=== PATIENT | female | born 1995 | race African-American/Black ===

== ENCOUNTER 2021-01-24 12:06 | Emergency (ER) | payer MEDICAID ==
[~2021-01-24] VITALS: Ht 160 cm; Wt 55.0 kg
[2021-01-24] MEDS ORDERED: TOPUD PO (12:12)
[2021-01-24] MEDS ORDERED: IBUP-2028 PO (12:12)
[2021-01-24] MEDS ORDERED: NAPR-681 PO (13:17)
[2021-01-24 13:32] VITALS: BP 128/88
== END 2021-01-24 13:33 | disposition home or self-care (01) ==
LOC: ER 12:28
DX: S43.401A Unspecified sprain of right shoulder joint, initial encounter (principal); J45.909 Unspecified asthma, uncomplicated; Z88.5 Allergy status to narcotic agent; X50.0XXA Overexertion from strenuous movement or load, initial encounter; Y93.89 Activity, other specified; Y92.018 Other place in single-family (private) house as the place of occurrence of the external cause
CPT/HCPCS: 73030; 81025; 99283

== ENCOUNTER 2021-09-03 03:40 | Emergency (ER) | payer MEDICAID ==
[~2021-09-03] VITALS: Ht 160 cm; Wt 53.5 kg
[~2021-09-03 03:40] MED LIST: NAPR-681 PO; TOPUD PO
[2021-09-03] MEDS ORDERED: ONDANSETRON 4MG ODT PO SCH (03:53)
[2021-09-03] MEDS ORDERED: KETOROLAC 30MG/ML VIAL IM SCH (05:44)
[2021-09-03] MEDS ORDERED: LIDOCAINE HCL/EPINEPHRINE 1%-EPI 1:100,000 20 ML VIAL INFIL SCH (05:44)
[2021-09-03] MEDS ORDERED: NAPR-681 MT (06:55)
[2021-09-03 07:00] LABS: BASOPHILS % 0.4 % (0.0-2.0); EOSINOPHILS % 0.8 % (0.0-5.0); HEMATOCRIT. 37.4 % (36.0-48.0); HEMOGLOBIN. 12.2 g/dL (12.0-16.0); LYMPHOCYTES % 27.9 % (20.0-50.0); MEAN CORPUSCULAR HEMOGLOBIN 28.9 pg (28.0-32.0); MEAN CORPUSCULAR VOLUME 88.7 fL (81.0-99.0); MEAN PLATELET VOLUME 8.7 fl (7.4-10.4); MONOCYTES % 6.5 % (2.0-8.0); NEUTROPHILS % 64.4 % (40.0-76.0); PLATELET 330 x1000/uL (130-400); RED BLOOD CELL COUNT 4.21 mill/uL (4.2-5.4); RED CELL DISTRIBUTION WIDTH 13.8 % (11.6-14.6)
[2021-09-03 07:20] LABS: CLARITY URINE CLEAR (CLEAR); COLOR URINE YELLOW (YELLOW); KETONES URINE TRACE (NEGATIVE); LEUKOCYTE ESTERASE URINE NEGATIVE (NEGATIVE); NITRITE URINE NEGATIVE (NEGATIVE); OCCULT BLOOD URINE NEGATIVE (NEGATIVE); PH URINE 6.5 (4.5-8.0); PROTEIN URINE NEGATIVE (NEGATIVE); SPECIFIC GRAVITY URINE 1.026 (1.005-1.030); UROBILINOGEN URINE 0.2 E.U./dL (0.2-1.0)
[2021-09-03 07:26] LABS: UCG SCREEN NEGATIVE
[2021-09-03 07:33] LABS: CHLORIDE 110 mEq/L (98-107)
== END 2021-09-03 06:53 | disposition home or self-care (01) ==
LOC: ER 03:40
DX: N93.8 Other specified abnormal uterine and vaginal bleeding (principal); N94.89 Other specified conditions associated with female genital organs and menstrual cycle; N83.209 Unspecified ovarian cyst, unspecified side; Z88.5 Allergy status to narcotic agent; J45.909 Unspecified asthma, uncomplicated
CPT/HCPCS: 36415; 76830; 76856; 80053; 81003; 81025; 85025; 99284; J1885; J3490; Q0162

== ENCOUNTER 2022-08-16 18:53 | Emergency (ER) | payer MEDICAID ==
[~2022-08-16] VITALS: Ht 165.1 cm; Wt 59.0 kg
[~2022-08-16 18:53] MED LIST changes: +NAPR-681 MT
[2022-08-16 18:59] VITALS: BP 126/83
== END 2022-08-16 23:18 | disposition left against medical advice (07) ==
LOC: ER 18:53
DX: Z53.21 Procedure and treatment not carried out due to patient leaving prior to being seen by health care provider (principal); R07.9 Chest pain, unspecified
CPT/HCPCS: 93005

== ENCOUNTER 2023-03-08 08:52 | Emergency (ER) | payer MEDICAID, OTHER ==
[~2023-03-08] VITALS: Ht 160 cm; Wt 53.5 kg
[2023-03-08 09:05] VITALS: BP 129/81
[2023-03-08 09:43] LABS: HEMATOCRIT. 39.9 % (36.0-48.0); HEMOGLOBIN. 13.1 g/dL (12.0-16.0); MEAN CORPUSCULAR HEMOGLOBIN 29.4 pg (28.0-32.0); MEAN CORPUSCULAR VOLUME 89.8 fL (81.0-99.0); MEAN PLATELET VOLUME 8.6 fl (7.4-10.4); PLATELET 304 x1000/uL (130-400); RED BLOOD CELL COUNT 4.45 mill/uL (4.2-5.4); RED CELL DISTRIBUTION WIDTH 13.8 % (11.6-14.6)
[2023-03-08 09:49] LABS: CHLORIDE 108 mEq/L (98-107)
[2023-03-08 10:33] LABS: PLATELET ESTIMATE NORMAL
[2023-03-08 11:57] LABS: CLARITY URINE CLEAR (CLEAR); COLOR URINE YELLOW (YELLOW); KETONES URINE 1+ (NEGATIVE); LEUKOCYTE ESTERASE URINE 1+ (NEGATIVE); NITRITE URINE NEGATIVE (NEGATIVE); OCCULT BLOOD URINE TRACE (NEGATIVE); PROTEIN URINE NEGATIVE (NEGATIVE); SPECIFIC GRAVITY URINE 1.028 (1.005-1.030)
[2023-03-08] MEDS ORDERED: ONDANSETRON 4MG ODT PO ONE (12:00)
[2023-03-08] MEDS ORDERED: LACT1CAP78 MT (12:16)
[2023-03-08] MEDS ORDERED: FAMO40TA70 MT (12:16)
[2023-03-08] MEDS ORDERED: LOPE2CAP MT (12:16)
== END 2023-03-08 13:19 | disposition home or self-care (01) ==
LOC: ER 09:24
DX: K52.9 Noninfective gastroenteritis and colitis, unspecified (principal); J45.909 Unspecified asthma, uncomplicated; I10 Essential (primary) hypertension; Z88.8 Allergy status to other drugs, medicaments and biological substances
CPT/HCPCS: 36415; 71045; 80053; 81003; 81025; 84484; 85025; 93005; 99285; Q0162

== ENCOUNTER 2025-09-08 07:31 | Emergency (ER) | payer MEDICAID, OTHER ==
[~2025-09-08] VITALS: Ht 160 cm; Wt 49.0 kg
[~2025-09-08 07:31] MED LIST changes: +FAMO40TA70 MT; +LACT1CAP78 MT; +LOPE2CAP MT
[2025-09-08 07:52] VITALS: O2SAT 98
[2025-09-08 07:56] VITALS: BP 127/89; PULSE 71; RESP 18; TEMP 36.9; O2SAT 100
[2025-09-08 08:49] LABS: BASOPHILS % 0.4 % (0.0-2.0); EOSINOPHILS % 0.5 % (0.0-5.0); HEMATOCRIT. 34.3 % (36.0-48.0); HEMOGLOBIN. 11.1 g/dL (12.0-16.0); LYMPHOCYTES % 26.7 % (20.0-50.0); MEAN PLATELET VOLUME 8.3 fl (7.4-10.4); MONOCYTES % 7.5 % (2.0-8.0); NEUTROPHILS % 64.9 % (40.0-76.0); PLATELET 235 x1000/uL (130-400); RED BLOOD CELL COUNT 3.83 mill/uL (4.2-5.4); RED CELL DISTRIBUTION WIDTH 13.3 % (11.6-14.6)
[2025-09-08 09:03] LABS: CREATININE 0.6 mg/dL (0.6-1.0); UREA NITROGEN BLOOD 8 mg/dL (9-23)
[2025-09-08 09:04] LABS: PROTEIN TOTAL 7.0 g/dL (6.0-8.3)
[2025-09-08 09:05] LABS: ASPARTATE AMINOTRANSFERASE 20 IU/L (<34); BILIRUBIN DIRECT < 0.1 mg/dL (<=3.0)
[2025-09-08 09:06] LABS: BILIRUBIN TOTAL 0.3 mg/dL (0.1-1.0)
== END 2025-09-08 09:30 | disposition left against medical advice (07) ==
LOC: ER 07:31
DX: R06.02 Shortness of breath (principal); R07.9 Chest pain, unspecified
CPT/HCPCS: 36415; 80048; 80076; 85025; 93005; 99281